=== PATIENT | female | born 1945 | race Caucasian/White ===

== ENCOUNTER 2016-06-02 06:42 | Outpatient (CLI) | payer MEDICARE, OTHER | END 2016-06-02 06:43 | disposition home or self-care (01) | DX: I10 Essential (primary) hypertension (principal); Z79.899 Other long term (current) drug therapy; E78.2 Mixed hyperlipidemia ==

== ENCOUNTER 2019-03-24 12:10 | Outpatient (CLI) | payer MEDICARE, OTHER ==
--- NOTE | 2019-03-24 14:29 | XRAY Report ---
Reason: KNEE JOINT PAIN,LEFT Procedure Date: 03/24/2019 Accession Number: [id number] / [id number] Procedure: XR - Knee 3 View LT CPT Code: Final Report FULL RESULT: EXAM: LEFT KNEE RADIOGRAPHY EXAM DATE: 03/24/2019 12:22 PM. CLINICAL HISTORY: Knee joint pain, left. COMPARISON: None. TECHNIQUE: 3 views. FINDINGS: Bones: Normal. No fractures or bone lesions. Joints: There is a joint effusion. No dislocation. Assessment for joint space narrowing on AP view is limited by positioning, no advanced degenerative changes. Soft Tissues: Normal. No soft tissue swelling. IMPRESSION: Joint effusion. No fracture or dislocation. [facility]
== END 2019-03-24 12:11 | disposition home or self-care (01) ==
LOC: DI 12:10
PROVIDERS: ATTEND Nurse Practitioner
DX: M25.562 Pain in left knee (principal); M25.462 Effusion, left knee

== ENCOUNTER 2022-08-21 13:03 | Outpatient (CLI) | payer MEDICARE, OTHER ==
--- NOTE | 2022-08-21 17:11 | XRAY Report ---
PROCEDURE: Foot 3 View BILAT INDICATIONS: INJURY RT FOOT/ANKLE TECHNIQUE: 3 views of the foot were acquired. COMPARISON: None. FINDINGS: Bones: No fractures or dislocations. No suspicious bony lesions. Normal bilateral calcaneal pitch . Soft tissues: No suspicious soft tissue calcifications or masses. IMPRESSION: No acute bony abnormality. If pain persists with conservative management, consider repeat radiographs in 10-14 days or cross-sectional imaging. Reviewed by: Martha Medina MD on 08/21/2022 5:10 PM PDT Approved by: Martha Medina MD on 08/21/2022 5:10 PM PDT Station ID: [id number]
--- NOTE | 2022-08-21 17:13 | XRAY Report ---
PROCEDURE: Ankle 3 View BILAT INDICATIONS: INJURY RT FOOT/ANKLE 07/29/22 TECHNIQUE: 3 views of the ankle were acquired. COMPARISON: None. FINDINGS: Bones: No fractures or dislocations. Ankle mortise is normally aligned. No suspicious bony lesions . There is mild calcaneal spurring. Soft tissues: No tibiotalar joint effusion. Achilles tendon appears normal. IMPRESSION: No acute bony abnormality. If there remains a high clinical concern for fracture, including inability to bear weight, consider cross-sectional imaging to exclude an occult fracture. Reviewed by: Martha Medina MD on 08/21/2022 5:11 PM PDT Approved by: Martha Medina MD on 08/21/2022 5:11 PM PDT Station ID: [id number]
== END 2022-08-21 13:04 | disposition home or self-care (01) ==
LOC: DI 13:03
PROVIDERS: ATTEND Podiatrist
DX: S99.921A Unspecified injury of right foot, initial encounter (principal); S99.911A Unspecified injury of right ankle, initial encounter